=== PATIENT | female | born 1970 | race Caucasian/White ===

== ENCOUNTER 2017-06-07 15:06 | Observation (INO) | payer BC ==
[~2017-06-07] VITALS: Ht 162.6 cm; Wt 81.8 kg
[2017-06-07] MEDS ORDERED: ULTRAM50 MG PO (15:22)
[2017-06-07] MEDS ORDERED: TYLENOL WITH C1 EACH PO (15:22)
[2017-06-07] MEDS ORDERED: ZESTRIL10 MG PO (15:23)
--- OUTSIDE RECORDS SUMMARY | 2017-06-07 15:34 | XMS ---
Demographics + + + | Address | [address] | | | [place] [address] | + + + | Preferred Language | Unknown | + + + | Marital Status | Unknown | + + + | Anabaptism Affiliation | Unknown | + + + | Race | Unknown | + + + | Ethnic Group | Unknown | + + + Author + + + | Author | [facility] | + + + | Organization | [facility] | + + + | Address | [address] | | | [place] [address] | + + + | Phone | | + + + Care Team Providers + + + + | Care Compactor Driver Name | Role | Phone | + + + + Unavailable | Unavailable | + + + + PROBLEMS + + + + + + + + | Type | Condition | ICD9-CM | [id number] | Onset | Condition | SNOMED | | | | Code | Code | Dates | Status | Code | + + + + + + + + | Assessment | Chondromal | M22.41 | | 18 March, | Active | [id number] | | | acia | | | 2017 | | | | | patellae | | | | | | | | of right | | | | | | | | knee | | | | | | + + + + + + + + | Problem | Right foot | | S99.921A | | Active | | | | injury | | | | | | + + + + + + + + | Assessment | Chondromal | M22.42 | | 18 March, | Active | [id number] | | | acia | | | 2016 | | | | | patellae | | | | | | | | of left | | | | | | | | knee | | | | | | + + + + + + + + | Problem | Hot | N95.1 | | | Active | [id number] | | | flashes | | | | | | | | due to | | | | | | | | menopause | | | | | | + + + + + + + + | Problem | Tobacco | | Z72.0 | | Active | [id number] | | | use | | | | | | + + + + + + + + | Problem | Left knee | | M25.562 | | Active | [id number] | | | pain | | | | | | + + + + + + + + | Problem | HTN | | I10 | | Active | 00052412 | | | (hypertens | | | | | | | | ion) | | | | | | + + + + + + + + | Problem | Encounter | | Z23 | | Active | [id number] | | | for | | | | | | | | immunizati | | | | | | | | on | | | | | | + + + + + + + + | Problem | Screening | Z12.4 | | | Active | [id number] | | | for | | | | | | | | cervical | | | | | | | | cancer | | | | | | + + + + + + + + ALLERGIES + + + + +---------+ | Substance | Reaction | Event Type | Date | Status | + + + + +---------+ | N.K.D.A. | Unknown | Non Drug | March, | Unknown | | | | Allergy | | | + + + + +---------+ SOCIAL HISTORY No smoking Hx information available PLAN OF CARE VITAL SIGNS + + + + | Height | 64.5 in | 2017-03-22 | + + + + | Weight | 186 lbs | 2017-03-22 | + + + + | BMI | 31.43 kg/m2 | 2017-03-22 | + + + + | Temperature | 98.1 degrees Fahrenheit | 2017-03-22 | + + + + | Heart Rate | 81 /min | 2017-03-22 | + + + + | Blood pressure systolic | 120 mm Hg | 2017-03-22 | + + + + | Blood pressure diastolic | 82 mm Hg | 2017-03-22 | + + + + MEDICATIONS + + + + + + + +--------+ | Medicati | Instruct | Dosage | Frequenc | Start | End Date | Duration | Status | | on | ions | | y | Date | | | | + + + + + + + +--------+ | Lisinopr | Orally | 1 tablet | 24h | 11 Feb, | | 30 | Active | | il 10 MG | Once a | | | 2016 | | day() | | | | day | | | | | | | + + + + + + + +--------+ | Estrace | Orally | 1 tablet | 24h | 16 March, | | 30 | Active | | 0.5 MG | Once a | | | 2017 | | day(s) | | | | day | | | | | | | + + + + + + + +--------+ | Nicoderm | Transder | 1 patch | 24h | | | | Active | | CQ 14 | mal Once | to skin | | | | | | | MG/24HR | a day | | | | | | | + + + + + + + +--------+ | Diclofen | Orally | 1 tablet | 12h | 18 March, | 16 Aug, | 30 | Active | | ac | Two | with | | 2016 | 2016 | day(s) | | | Sodium | times a | food or | | | | | | | 50 MG | day | milk | | | | | | + + + + + + + +--------+ RESULTS No Results PROCEDURES + + + + + | Procedure | Date Ordered | Related Diagnosis | Body Site | + + + + + | Est Level IV | March 22, 2017 | | | | Extended | | | | + + + + + | [facility] MED/CURRENT | March 22, 2017 | | | | MED MERGE | | | | + + + + + IMMUNIZATIONS No Known Immunizations"
--- NOTE | 2017-06-07 18:30 | NUR ---
RECEIVED REPORT VIA TELEPHONE FROM ED RN.
--- NOTE | 2017-06-07 19:06 | NUR ---
RECEIVED REPORT FROM DAY SHIFT RN. PATIENT RATES PAIN AT A 4/10. PATIENT JUST RECEIVED PRN PAIN MEDICATION. PATIENT DENIES ANY NEEDS. CALL LIGHT IS WITHIN REACH.
--- NOTE | 2017-06-07 19:57 | NUR ---
PATIENT INTAKE ASSESMENT COMPLETED AND RECORDED. PATIENT RATES PAIN AT 6/10. PATIENT STATED "THE PAIN IS MUCH IMPROVED" PATIENT IS A SBA AND IS STEADY ON HER FEET. PATIENT ASSISTED TO THE BATHROOM AND HAD A VERY LARGE LOOSE BM. PATIENT DENIES ANY NAUSEA. PATIENTS EVENING MEDICATIONS GIVEN PER ORDER. PATIENT EDUCATED ON DIET. PATIENT ORIENTED TO ROOM AND FLOOR. PATIENT EDUCATED ON THE USE ON THE CALL LIGHT. PATIENT VERBALIZED UNDERSTANDING. PATIENT DENIES ANY FURTHER NEEDS AT THIS TIME. CALL LIGHT IS WITHIN REACH.
--- NOTE | 2017-06-07 22:33 | NUR ---
PATIENT EXPRESSED FRUSTRATION OF IV IN HER AC STATING "EVERY TIME I MOVE THIS MACHINE BEEPS" NEW IV ATTEMPTED BY MULTIPLE NURSES WITH NO SUCCESS. PATIENT STARTED TO CRY AND BECAME VERY ANXIOUS. PATIENT EXPRESSED FRUSTRATION WITH NEW IV UNABLE TO BE STARTED. PATIENT STATED "I JUST WANT TO FEEL BETTER, AND REST, THIS STUPID MACHINE SUCKS" PATIENT GIVEN PRN ANXIETY MEDICATION PER ORDER. PATIENT ALSO GIVEN PRN TYLENOL FOR 8/10 ABD PAIN. PATIENT GIVEN FRESH ICE WATER. PATIENT DENIES ANY FURTHER NEEDS. CALL LIGHT IN REACH.
--- NOTE | 2017-06-08 00:30 | NUR ---
PATIENTS IV PUMP WAS BEEPING. PATIENT HAD ARM BENT. PATIENTS IV FIXED AND [ATIETNS ARM PLACED ON A PILLOW TO HELP KEEP IV FROM OCCLUDING. PATIENT DENIES ANY NEEDS AT THIS TIME. CALL LIGHT IN REACH.
--- NOTE | 2017-06-08 02:25 | NUR ---
PATIENT IS RESTING IN BED ON HER RIGHT SIDE. PATIENTS BREATHING IS EVEN AND UNLABORED, RR 18. CALL LIGHT IN REACH.
--- NOTE | 2017-06-08 04:03 | NUR ---
PATIENT GIVEN PRN TORADOL FOR 7/10 LOWER ABD PAIN. PATIENT DENIES ANY NAUSEA. PATIENT ALSO GIVEN A WARM PACK FOR HER LOWER ABD. PATIENT DENIES ANY FURTHER NEEDS. CALL LIGHT IS WITHIN REACH.
--- NOTE | 2017-06-08 05:20 | NUR ---
PATIENT RESTED WELL FOR THE MAJORITY OF THE SHIFT. PATIENT IS ON CLEARS AND IS TOELRATING THEM WELL. PATIENT DENIED ANY NAUSEA. PATIENT RECEIVED X2 PRN PAIN MEDICATION FOR LOWER ABD PAIN. PATIENT RECIEVED X1 PRN ANXIETY MEDICATION FOR ANGITATION AND ANXIETY. PATIENT IS INDEPENDENT IN THE ROOM AND IS STEADY ON HER FEET. PATIENT HAD X5 LOOSE LARGE BM'S. PATIENT IS AAOX3 AND USES CALL LIGHT APPROPRIATELY.
--- NOTE | 2017-06-08 05:54 | NUR ---
PATIENTS BLOOD DRAWN FROM IV SITE. PATIENT IS VERY UPSET IN THE ROOM. PATIENT STATES "IT IS MY SONS BIRTHDAY AND I AM HERE" PATIENT RATES PAIN AT A 5/10 AND STATES "THE WARM PACK HELPS" PATIENTS URIN SMAPLE SENT TO LAB. PATIENT DENIES ANY FURTHER NEEDS. CALL LIGHT IN REACH.
--- NOTE | 2017-06-08 07:08 | NUR ---
RECIEVED BEDSIDE REPORT FROM JUAN QUINTANILLA. PT AWAKE AND ALERT IN BED WITH FAMILY AT BEDSIDE. DISCUSSED GOALS OF THE DAY, PLAN OF CARE.
--- NOTE | 2017-06-08 08:28 | NUR ---
PT IS VERY TEARFUL AND ANXIOUS. PT WAS INSTRUCTED TO HAVE A FULL BLADDER FOR AN ULTRASOUND, HOWEVER PT EMPTIED HER BLADDER. 1MG ATIVAN GIVEN FOR ANXIETY. PT STATES HER KNEE IS VERY PAINFUL, MD AWARE. MD AWARE PT REFUSED BOWEL MEDS THIS AM.
--- NOTE | 2017-06-08 09:01 | NUR ---
PT SLEEPING SOUNDLY, BREATHING EVEN AND UNLABORED.
--- NOTE | 2017-06-08 10:01 | NUR ---
ULTRASOUND COMPLETED PELVIC US.
--- NOTE | 2017-06-08 11:03 | NUR ---
PT LAYING IN BED, WRAPPED IN BLEANET. SOME TEARS WERE FLOWING AND SHE EXPRESSED ANXIETY OVER BEING HERE-TODAY IS HER SON'S 22ND BDAY. CAME IN FOR ABDO PAIN, BUT NOW HER KNEE IS MORE OF AN ISSUE TO HER. HER IS IN ROOM AND SEEMS SUPPORTIVE. SHE WANTS TO KNOW WHY SHE IS NOT RECEIVING HER PAIN MEDS FOR HER KNEE, I WILL FOLLOW UP W/RN. NARCOTIC PAIN MEDS SUSPECTED IN CONSTIPATION ISSUE. PT REQUESTED PRAYER, WILL CONTINUE TO FOLLOW
--- NOTE | 2017-06-08 11:26 | NUR ---
PT RESTING IN BED WITH EYES CLOSED, WAKES EASILY TO VOICE. IV ANTIBIOTICS RUNNING AT THIS TIME. ALL PT QUESTIONS ANSWERED RE: NEW MEDICATIONS. PT VERY TEARFUL AND ANXIOUS.
--- NOTE | 2017-06-08 12:08 | NUR ---
MED REC COMPLETE WITH [facility] REFILL HISTORY.
--- NOTE | 2017-06-08 13:04 | NUR ---
PT STILL TEARFUL AND ANXIOUS. PT REPORTS PAIN IN LEFT KNEE 6/10, WHICH IS UNCHANGED FROM THIS MORNING. PT DENIES NAUSEA.
--- NOTE | 2017-06-08 15:39 | NUR ---
ROUNDED WITH DR PIRES. PT TEARFUL AND ANXIOUS. PT AND FAMILY HAD QUESIONS RE: TREATMENT OPTIONS, ANSWERED BY MD AND RN. PT RESTING IN BED.
--- NOTE | 2017-06-08 16:13 | NUR ---
PT VERY TEARY. STATES SHE WOULD LIKE TO GO OUTSIDE, ADVISED THE POLICY THAT SHE CANNOT GO OUTSIDE WHILE SHE IS AN INPATIENT. DECLINED TO HAVE THE BLINDS RAISED IN HER ROOM TO LET IN THE SUN. JUAN OLIVAS WAS ABLE TO GET AN IV STARTED IN RIGHT FOREARM.
--- NOTE | 2017-06-08 18:55 | NUR ---
PT IS VERY EMOTIONAL, TEARY AND UPSET. NO C/O ABD PAIN, COMPLAINTS OF LEFT KNEE PAIN. NEW IV STARTED IN RIGHT FOREARM. NS @ 125. MULTIPLE LOOSE BM. VOIDING WELL. ATIVAN X3, TORADOL X2.
--- NOTE | 2017-06-08 21:30 | NUR ---
PT IN BED, TEARFULLY TALKING WITH HER . UPSET ABOUT HER DIET, BUT STATES SHE UNDERSTANDS WHY. HAS BEEN UP TO VOID PRIOR TO THIS HOUR. ACTIVE BOWEL SOUNDS, STATES SHE HASN'T HAD A BM THIS EVENING.
--- NOTE | 2017-06-08 23:00 | NUR ---
PT WITH LIGHTS OUT, RESP EVEN AND UNLABORED. REQUESTED HER PRN ATIVAN EARLIER, RECEIVED DOSE WITH HER BEDTIME MEDS.
--- NOTE | 2017-06-09 00:30 | NUR ---
PT WITH EYES CLOSED, IV CONTINUES TO INFUSE PER ORDER. HAS NOT USED CALL LIGHT IN PAST 2 HOURS.
--- NOTE | 2017-06-09 02:15 | NUR ---
PT WITH EYES CLOSED, RESP EVEN AND UNLABORED. HAS NOT USED CALL LIGHT UP TO THIS HOUR FROM 2200.
--- NOTE | 2017-06-09 05:28 | NUR ---
PT AWAKE, VISITING, SMILING. TALKED ABOUT LAST NIGHT, SHE WAS CRYING WITH HER , NOT HAPPY WITH HIM, BECAUSE THEY ARE MOVING AND HE MOVED ALL THE BOXES THAT THEY WERE NOT KEEPING, TO THEIR NEW HOUSE. STATED THAT SHE DIDN'T MEAN TO CRY BUT SHE COULDN'T HELP IT. SON'S BIRTHDAY WAS THE 4TH, AND SHE WASN'T HOME FOR HIM. STATES SHE DOESN'T FEEL SICK, NO PAIN IN THE STOMACH ANYMORE. DOESN'T KNOW WHY HER LABS: WBC'S ARE ELEVATED SAYS DOESN'T KNOW. UP TO THE BATHROOM 2X SINCE MIDNIGHT.
--- NOTE | 2017-06-09 07:21 | NUR ---
BEDSIDE HANDOFF REPORT RECEIVED FROM WATER PUMPER RN. PT RESTIN GIN BED, BEDSIDE. PT DENIES NEEDS AT THIS TIME.
--- NOTE | 2017-06-09 08:20 | NUR ---
PT RESTING IN BED. PT DENIES PAIN. PT ON ROOM AIR, LUNG SOUNDS CLEAR. PT EMOTIONAL, HIGH ANXIETY, REQUESTING ATIVAN, 1 MG IV ATIVAN GIVEN. PT DENIES NAUSEA, TOLERATING FULL LIQUID DIET. PT REPORT OF SOFT BOWEL MOVEMENTS OVER NIGHT, REFUSING SENNA AND MIRALAX. PT VOICING DESRIE TO DISCHARGE TODAY. DISCUSSED PLAN OF CARE WITH PT. PT DENIES OTHER NEEDS AT THIS TIME.
[2017-06-09] MEDS ORDERED: CEPHALEXIN500 MG PO (09:07)
[2017-06-09] MEDS ORDERED: METRONIDAZOLE500 MG PO (09:08)
[2017-06-09] MEDS ORDERED: NICOTINE1 EAC1 TD (09:10)
--- NOTE | 2017-06-09 09:52 | NUR ---
VITALS TAKEN. PT IS BEING DISCHARGED TO HOME
--- NOTE | 2017-06-11 16:28 | CONS ---
[facility] [address], [place] [address] Signed DATE OF SERVICE: 06/08/2017 REFERRING PHYSICIAN: Dr. Adri Monte. CHIEF COMPLAINT: Lower abdominal pain. HISTORY OF PRESENT ILLNESS: Adriana is a 47-year-old female who underwent left knee arthroscopy with removal of meniscus [address] Hayden Valle. Unfortunately, she has been constipated since the surgery. Her had been to the pharmacy and consulted with his pharmacist and tried initially some Dulcolax suppositories followed by magnesium citrate p.o. and eventually she passed a few hard ashleigh. Of course, she was complaining of crampy abdominal pain after all the l a xatives and finally her brought her into the emergency roomfor evaluation. In the emergency room, she was hydrated and then admitted to our Internal Medicine Service. She was given additional fluids yesterday overnight. Her white blood count was i n itially 18.3, is now 18.9. Initially the antibiotics were held. Neutrophils were 79. Her sedimentation rate is elevated at 26 and her CRP is also elevated at 32 with a lactic acid fine at 0.9, and a repeat urinalysis this morning is fine. Liver function t e sts also fine, lipase fine, albumin is good at 4.1. BUN and creatinine are also good at 7 and 0.6. Because of her ongoing issues, I was called early this morning to see her in consultation as the general surgeon configuration manager. In the meantime, she had a CT scan performed and there was diffuse submucosal edema in the rectum and distal sigmoid colon. There was also dilated fluid-filled colon and no evidence of any excess stool. Also, she has bilateral follicular ovarian cysts. She then had a pelvic ultrasound perf o rmed and again she has bilateral follicular cysts. In talking with Adriana, she has had a previous partial hysterectomy because she had cervical polyps. Four years ago, she was on quite a few medications and having trouble with nausea and vomiting, ended u p with a colonoscopy and that was unremarkable. In the meantime, she has had 6 large bowel movements and now is feeling much better with respect to the abdomen, in fact all the abdominal pain is gone. Of course she is tired and a little emotional. She oralia d her son's birthday today and she would like to go home, although her white count remains elevated. She has been on a clear liquid diet, but she has had very little appetite. PAST MEDICAL HISTORY: Hypertension, cervical polyps, and cyclic vomiting syndrome. PAST SURGICAL HISTORY: Partial hysterectomy, left knee arthroscopy with meniscectomy with Dr. Valle 2 weeks ago, and a negative colonoscopy 4 years ago. SOCIAL HISTORY: Electronically Signed By: RYAN PIRES MD 06/11/17 5427 PATIENT NAME: ADRIANA LORA CONSULTATION DATE OF : 68 PHYSICIAN: RYAN PIRES MD REPORT #: [id number] REPORT IS CONFIDENTIAL AND NOT TO BE RELEASED WITHOUT AUTHORIZATION [facility] [address] [place] [id number] Signed She does not smoke or drink. She is to [place] at [phone]. Dr. Shantanu Kessler is her primary care provider. They prefer the [facility]. FAMILY HISTORY: She is adopted, but she knows her maternal aunt and maternal grandmother both had breast cancer. She has had a mammogram herself and that was fine. REVIEW OF SYSTEMS: She had 10 systems reviewed and I included findings in the above. ALLERGIES: None. She had quite a bit of nausea after the anesthesia for couple of days, but that has resolved. MEDICATIONS: Tylenol with Codeine No. 3, tramadol, and lisinopril. PHYSICAL EXAMINATION: VITAL SIGNS: Her blood pressure is 104/65, heart rate 70, respiratory rate 16, temperature is 99. She is 99% on room air. She is 5 feet 4 inches, 81 kg. GENERAL: Adriana is a 47-year-old female, lying supine in her hospital bed. Her is at the [facility] and our nurse is with us. One can see she has been tearful and crying. She has some puffiness around her eyes. She is tired, but she is alert and awake and interactive otherwise. She is actually good historian so is her . LUNGS: Clear to auscultation bilaterally. HEART: Regular rate and rhythm. ABDOMEN: Soft, flat and nontender, particularly in the lower abdomen. RECTUM: Rectal exam was not performed. LABORATORY DATA: Her white blood cell count was initially 18.3, now 18.9, hemoglobin is 12.9 with neutrophils 79. Her BUN is 7, creatinine 0.6. Her repeat urinalysis is negative. Her lactic acid is normal at 0.7, but the sed rate is a little high at 26 and her CRP is a little up at 32. Her CA-125 is negative. Her liver function test is negative. Her albumin is 4.1, and lipase is negative. RADIOGRAPHIC STUDIES: The CT scan and pelvis is reviewed and she does have the submucosal edema of the rectum in the distal sigmoid colon. There is dilated fluid-filled colon. No evidence of any impacted stool. The re is a little perirectal and pericolonic fat stranding. I can also see the bilateral follicular ovarian cysts. An ultrasound was performed in followup and there is no free fluid in the pelvis, but again the benign physiologic bilateral follicular cysts. ASSESSMENT AND PLAN: Electronically Signed By: RYAN PIRES MD 06/11/17 1628 PATIENT NAME: ADRIANA LORA CONSULTATION DATE OF : 68 PHYSICIAN: RYAN PIRES MD REPORT #: [id number] REPORT IS CONFIDENTIAL AND NOT TO BE RELEASED WITHOUT AUTHORIZATION [facility] [address] [place], [place] [address] Signed Adriana is a 47-year-old female, who presents as above. She also told me at one point 1 of her tumor markers was elevated and then she ended up with a CT scan, and they thought that she might have carcinomatosis. She had been down to [facility], and in the end that turned out all to be unremarkable. Today, our Internal Medicine Service did draw a CA-125 level and it is fine. I think at this point, her story follows a very logical chronologic order and it looks l gumaro the findings in the rectum and distal sigmoid colon are probably from the enemas and suppositories. Also, she had a negative colonoscopy 4 years ago. I think, at this point, she wanted to wait and continue IV fluids and we are going to pump her up to a full liquid diet and we will see how she does with repeat labs in the morning. Of course, she would like to go home today because it is her son's birthday, but I think that is unwise. I think in due time she will be fine. I have discussed this with the jadiel marilynn, her , and the nurse. They have expressed understanding and agreed to above plan. MD AMARA Abreu/Mandy /[id number] cc: MD Dr. Shantanu Hall Electronically Signed By: RYAN PIRES MD 06/11/17 1628 PATIENT NAME: ADRIANA LORA CONSULTATION DATE OF : 68 PHYSICIAN: RYAN PIRES MD REPORT #: [id number] REPORT IS CONFIDENTIAL AND NOT TO BE RELEASED WITHOUT AUTHORIZATION
== END 2017-06-09 10:05 | disposition home or self-care (01) ==
LOC: ED 15:06 → MS 15:07
PROVIDERS: ADMIT Internal Medicine
DX: K52.9 Noninfective gastroenteritis and colitis, unspecified (principal); K59.03 Drug induced constipation; T40.4X5A Adverse effect of other synthetic narcotics, initial encounter; T40.2X5A Adverse effect of other opioids, initial encounter; F17.200 Nicotine dependence, unspecified, uncomplicated; I10 Essential (primary) hypertension; Z79.891 Long term (current) use of opiate analgesic; Z79.899 Other long term (current) drug therapy; Z98.890 Other specified postprocedural states
CPT/HCPCS: 36415; 51701; 74177; 76830; 76856; 80048; 80053; 81001; 83605; 83690; 83735; 84100; 85025; 85651; 86140; 86304; 96361; 96365; 96366; 96374; 96375; 96376; 99285; 99406; G0378; J0696; J1170; J1885; J2060; J2405; J7030; Q9967

== ENCOUNTER 2017-06-23 16:19 | Emergency (ER) | payer BC ==
[~2017-06-23] VITALS: Ht 162.6 cm; Wt 81.7 kg
--- OUTSIDE RECORDS SUMMARY | ~2017-06-23 | XMS ---
Demographics + + + | Address | [address] | | | [place] [address] | + + + | Preferred Language | Unknown | + + + | Marital Status | Unknown | + + + | Zoroastrianism Affiliation | Unknown | + + + | Race | Unknown | + + + | Ethnic Group | Unknown | + + + Author + + + | Author | [facility] | + + + | Organization | [facility] | + + + | Address | [address] | | | [place] [address] | + + + | Phone | | + + + Care Team Providers + + + + | Care Network Technology Instructor Name | Role | Phone | + + + + Unavailable | Unavailable | + + + + PROBLEMS +---------+ + + +--------+ + + | Type | Condition | ICD9-CM | [id number] | Onset | Condition | SNOMED | | | | Code | Code | Dates | Status | Code | +---------+ + + +--------+ + + | Problem | Right foot | | S99.921A | | Active | | | | injury | | | | | | +---------+ + + +--------+ + + | Problem | Hot | N95.1 | | | Active | [id number] | | | flashes | | | | | | | | due to | | | | | | | | menopause | | | | | | +---------+ + + +--------+ + + | Problem | Tobacco | | Z72.0 | | Active | [id number] | | | use | | | | | | +---------+ + + +--------+ + + | Problem | Left knee | | M25.562 | | Active | [id number] | | | pain | | | | | | +---------+ + + +--------+ + + | Problem | HTN | | I10 | | Active | 87330163 | | | (hypertens | | | | | | | | ion) | | | | | | +---------+ + + +--------+ + + | Problem | Encounter | | Z23 | | Active | [id number] | | | for | | | | | | | | immunizati | | | | | | | | on | | | | | | +---------+ + + +--------+ + + | Problem | Screening | Z12.4 | | | Active | [id number] | | | for | | | | | | | | cervical | | | | | | | | cancer | | | | | | +---------+ + + +--------+ + + ALLERGIES Unknown Allergies SOCIAL HISTORY No smoking Hx information available PLAN OF CARE VITAL SIGNS MEDICATIONS Unknown Medications RESULTS No Results PROCEDURES No Known procedures IMMUNIZATIONS No Known Immunizations"
[~2017-06-23 16:19] MED LIST: CEPHALEXIN500 MG PO; METRONIDAZOLE500 MG PO; NICOTINE1 EAC1 TD; TYLENOL WITH C1 EACH PO; ULTRAM50 MG PO; ZESTRIL10 MG PO
[2017-06-23] MEDS ORDERED: ZOFRAN ODT4 MG PO (22:03)
== END 2017-06-23 22:08 | disposition home or self-care (01) ==
LOC: ED 16:19
DX: R10.10 Upper abdominal pain, unspecified (principal); F17.200 Nicotine dependence, unspecified, uncomplicated; Z90.10 Acquired absence of unspecified breast and nipple; Z79.899 Other long term (current) drug therapy
CPT/HCPCS: 80053; 81001; 83690; 85025; 96361; 96372; 96374; 96375; 96376; 99283; J1170; J1885; J2270; J2405; J2550; J7030

== ENCOUNTER 2017-06-26 11:49 | Emergency (ER) | payer BC ==
[~2017-06-26] VITALS: Ht 162.6 cm; Wt 81.7 kg
[~2017-06-26 11:49] MED LIST changes: +ZOFRAN ODT4 MG PO
[2017-06-26] MEDS ORDERED: ONDANSETRON ODT8 MG PO (14:33)
[2017-06-26] MEDS ORDERED: BACTRIM DS TAB1 EACH PO (14:33)
[2017-06-26] MEDS ORDERED: BENTYL10 MG PO (14:33)
== END 2017-06-26 14:43 | disposition home or self-care (01) ==
LOC: ED 11:49
DX: K52.9 Noninfective gastroenteritis and colitis, unspecified (principal); F17.200 Nicotine dependence, unspecified, uncomplicated; Z79.899 Other long term (current) drug therapy
CPT/HCPCS: 74177; 80053; 81001; 82150; 83690; 85025; 96361; 96374; 96375; 96376; 99284; J1170; J2405; J2550; J7030; Q9967

== ENCOUNTER 2017-06-28 08:11 | Emergency (ER) | payer BC ==
[~2017-06-28] VITALS: Ht 162.6 cm; Wt 81.7 kg
[~2017-06-28 08:11] MED LIST changes: +BACTRIM DS TAB1 EACH PO; +BENTYL10 MG PO; +ONDANSETRON ODT8 MG PO
[2017-06-28] MEDS ORDERED: NORCO 5-325 TA1 EACH PO (09:35)
== END 2017-06-28 09:49 | disposition home or self-care (01) ==
LOC: ED 08:11
DX: R10.84 Generalized abdominal pain (principal); F17.200 Nicotine dependence, unspecified, uncomplicated; Z90.710 Acquired absence of both cervix and uterus; Z79.899 Other long term (current) drug therapy
CPT/HCPCS: 80053; 81001; 82150; 83690; 85025; 96374; 96375; 99283; J1885; J2060; J2550; J7030

== ENCOUNTER 2017-09-22 16:43 | Emergency (ER) | payer BC ==
[~2017-09-22] VITALS: Ht 162.6 cm; Wt 81.7 kg
--- OUTSIDE RECORDS SUMMARY | ~2017-09-22 | XMS ---
Demographics + + + | Address | [address] | | | [place] [address] | + + + | Preferred Language | Unknown | + + + | Marital Status | Unknown | + + + | Jewish Affiliation | Unknown | + + + | Race | Unknown | + + + | Ethnic Group | Unknown | + + + Author + + + | Author | [facility] | + + + | Organization | [facility] | + + + | Address | 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 | | | | | | | | block | | | | | | +---------+ + + +--------+ + + | Problem | Right foot | | S99.921A | | Active | | | | injury | | | | | | +---------+ + + +--------+ + + | Problem | Colitis | K52.9 | | | Active | 57500044 | +---------+ + + +--------+ + + | Problem | Left axis | R94.31 | | | Active | 88376614 | | | deviation | | | | | | +---------+ + + +--------+ + + | Problem | Hot | N95.1 | | | Active | 01346776 | | | flashes | | | | | | | | due to | | | | | | | | menopause | | | | | | +---------+ + + +--------+ + + | Problem | Tobacco | | Z72.0 | | Active | 485565378 | | | use | | | | | | +---------+ + + +--------+ + + | Problem | Left knee | | M25.562 | | Active | 257472318 | | | pain | | | | | | +---------+ + + +--------+ + + | Problem | HTN | | I10 | | Active | 26115969 | | | (hypertens | | | | | | | | ion) | | | | | | +---------+ + + +--------+ + + | Problem | Encounter | | Z23 | | Active | 958343449 | | | for | | | | | | | | immunizati | | | | | | | | on | | | | | | +---------+ + + +--------+ + + | Problem | Screening | Z12.4 | | | Active | [id number] | | | for | | | | | | | | cervical | | | | | | | | cancer | | | | | | +---------+ + + +--------+ + + ALLERGIES Unknown Allergies SOCIAL HISTORY No smoking Hx information available PLAN OF CARE VITAL SIGNS MEDICATIONS + + + + + + + +--------+ | Medicati | Instruct | Dosage | Frequenc | Start | End Date | Duration | Status | | on | ions | | y | Date | | | | + + + + + + + +--------+ | Lisinopr | Orally | 1 tablet | 24h | 11 Apr, | | | Active | | il 10 MG | Once a | | | 2017 | | | | | | day | | | | | | | + + + + + + + +--------+ RESULTS No Results PROCEDURES No Known procedures IMMUNIZATIONS No Known Immunizations"
--- OUTSIDE RECORDS SUMMARY | ~2017-09-22 | XMS ---
Demographics + + + | Address | [address] | | | [place] [address] | + + + | Preferred Language | Unknown | + + + | Marital Status | Unknown | + + + | Islam Affiliation | Unknown | + + + | Race | Unknown | + + + | Ethnic Group | Unknown | + + + Author + + + | Author | [facility] | + + + | Organization | [facility] | + + + | Address | [address] | | | [place] [address] | + + + | Phone | | + + + Care Team Providers + + + + | Care [facility] Dean Name | Role | Phone | + + + + Unavailable | Unavailable | + + + + PROBLEMS +---------+ + + +--------+ + + | Type | Condition | ICD9-CM | [id number] | Onset | Condition | SNOMED | | | | Code | Code | Dates | Status | Code | +---------+ + + +--------+ + + | Problem | Left | I44.7 | | | Active | [id number] | | | bundle | | | [...] | K52.9 | | | Active | 08129923 | +---------+ + + +--------+ + + | Problem | Left axis | R94.31 | | | Active | 55252599 | | | deviation | | | | | | +---------+ + + +--------+ + + | Problem | Hot | N95.1 | | | Active | 89452878 | | | flashes | | | | | | | | due to | | | | | | | | menopause | | | | | | +---------+ + + +--------+ + + | Problem | Tobacco | | Z72.0 | | Active | 888316759 | | | use | | | | | | +---------+ + + +--------+ + + | Problem | Left knee | | M25.562 | | Active | 310981437 | | | pain | | | | | | +---------+ + + +--------+ + + | Problem | HTN | | I10 | | Active | 41638204 | | | (hypertens | | | | | | | | ion) | | | | | | +---------+ + + +--------+ + + | Problem | Encounter | | Z23 | | Active | 074805615 | | | for | | | | | | | | immunizati | | | | | | | | on | | | | | | +---------+ + + +--------+ + + | Problem | Screening | Z12.4 | | | Active | 012823906 | | | for | | | [...]
[~2017-09-22 16:43] MED LIST changes: +NORCO 5-325 TA1 EACH PO
[2017-09-22] MEDS ORDERED: ESTRACE0.5 MG PO (16:59)
[2017-09-22] MEDS ORDERED: PROMETHAZINE HC25 M1 PO (19:13)
[2017-09-22] MEDS ORDERED: ONDANSETRON ODT8 MG PO (19:13)
== END 2017-09-22 19:29 | disposition home or self-care (01) ==
LOC: ED 16:43
DX: R11.2 Nausea with vomiting, unspecified (principal); R10.9 Unspecified abdominal pain; F17.200 Nicotine dependence, unspecified, uncomplicated; Z90.710 Acquired absence of both cervix and uterus; Z79.899 Other long term (current) drug therapy
CPT/HCPCS: 80053; 83690; 85025; 96374; 96375; 96376; 99283; J1170; J2405; J2550

== ENCOUNTER 2021-03-18 14:15 | Emergency (ER) | payer BC ==
[~2021-03-18] VITALS: Ht 162.6 cm; Wt 72.6 kg
[~2021-03-18 14:15] MED LIST changes: +ESTRACE0.5 MG PO; +PROMETHAZINE HC25 M1 PO
[2021-03-18] MEDS ORDERED: K-TAB ER20 MEQ PO (17:55)
[2021-03-18] MEDS ORDERED: ZOFRAN4 MG PO (17:55)
== END 2021-03-18 18:47 | disposition home or self-care (01) ==
LOC: ED 14:15
DX: R11.15 Cyclical vomiting syndrome unrelated to migraine (principal); R10.9 Unspecified abdominal pain; E87.6 Hypokalemia; F17.200 Nicotine dependence, unspecified, uncomplicated
CPT/HCPCS: 74177; 80053; 81001; 83690; 85025; 96375; 99284-25; J1170; J2270; J2550; J3480; J7030; J7060; Q9967

== ENCOUNTER 2021-05-02 18:47 | Emergency (ER) | payer BC ==
[~2021-05-02] VITALS: Ht 162.6 cm; Wt 72.7 kg
[~2021-05-02 18:47] MED LIST changes: +K-TAB ER20 MEQ PO; +ZOFRAN4 MG PO
[2021-05-02] MEDS ORDERED: ZOFRAN4 MG PO (21:04)
== END 2021-05-02 21:21 | disposition home or self-care (01) ==
LOC: ED 18:47
DX: R11.15 Cyclical vomiting syndrome unrelated to migraine (principal); F17.200 Nicotine dependence, unspecified, uncomplicated
CPT/HCPCS: 80053; 81001; 83690; 85025; 96374; 96375; 96376; 99284-25; J1170; J2405; J7030

== ENCOUNTER 2021-07-12 14:59 | Emergency (ER) | payer BC ==
[~2021-07-12] VITALS: Ht 162.6 cm; Wt 72.7 kg
== END 2021-07-12 20:22 | disposition home or self-care (01) ==
LOC: ED 14:59
DX: R11.15 Cyclical vomiting syndrome unrelated to migraine (principal); F17.200 Nicotine dependence, unspecified, uncomplicated
CPT/HCPCS: 80053; 81001; 83690; 85007; 85025; 96374; 96375; 96376; 99284-25; J1170; J1200; J2405; J2550; J2765; J7030

== ENCOUNTER 2024-04-15 07:47 | Day surgery (SDC) | payer OTHER ==
[~2024-04-15] VITALS: Ht 162.6 cm; Wt 81.7 kg
[~2024-04-15 07:47] MED LIST changes: +ESTRACE1 MG PO; +HYDROXYZINE HCL50 MG PO; +IBLOOD GLUCOSE TEST STRIP 1 EA TEST VI PRN; +LACTATED RINGER'S 1,000 ML IV SCH; +LIDOCAINE HCL 1% 5 ML SDV INJ ONE; +MIDAZOLAM HCL 5 MG/5 ML VIAL IV PRN; +VENLAFAXINE HCL75 MG PO; +fentaNYL citrate 100 MCG/2 ML VIAL IV PRN
[2024-04-15 08:15] VITALS: BP 138/84
[2024-04-15] MEDS ORDERED: fentaNYL citrate 100 MCG/2 ML VIAL ONE ×2 (08:47→09:20)
[2024-04-15] MEDS ORDERED: MIDAZOLAM HCL 5 MG/5 ML VIAL ONE ×2 (08:47→09:20)
[2024-04-15] MEDS ORDERED: ondansetron HCL 4 MG/2 ML VIAL IV ONE (09:15)
--- NOTE | 2024-04-15 09:41 | NUR ---
04/15/24 0941 Sondra Sanabria 0958-PATIENT ARRIVED TO PACU ON 2L NC RR EVEN. PATIENT AWAKE TRYING TO SIT UP IN BED ORIENTED TO PACU AND ENCOURAGED TO LAY BACK DOWN. ABDOMEN SOFT IVF INFUSING. PATIENT EASILY DOZES BACK TO SLEEP.
--- NOTE | 2024-04-15 10:32 | OR ---
[facility] [address], [place] [address] Signed DATE OF OPERATION: 04/15/2024 SURGEON: Ryan Pires MD PREOPERATIVE DIAGNOSES: Screening. POSTOPERATIVE DIAGNOSES: 1. A 3 mm polyp at 4 cm in rectum. 2. Long redundant colon. 3. Tortuous sigmoid colon. 4. Minimal internal hemorrhoids. PROCEDURE: Colonoscopy with hot biopsy. ESTIMATED BLOOD LOSS: None. INDICATIONS: Adriana is a 54-year-old female asked to see me for a screening colonoscopy. She is adopted. To her knowledge, she has no colon cancer or polyps in the family. She does suffer cyclic vomiting syndrome for quite some time. We did give her some Zofran preoperatively in that regard. She went through extensive testing all down in [place]. She cannot recall the colonoscopy in 2013 at the age of 43 while in [place]. She talked about some constipation in 2017 after the knee arthroscopy that ended up with some inflammation in the rectum, but in the end she did fine. She said her CBD pen works the best for her cyclic vomiting syndrome. She says she only uses it once or twice a month if not all. She has no lower GI complaints currently. In the office, I gave her a pamphlet on colonoscopy. We had reviewed the nature of the test. There is risk including, but not limited to gas bloating, crampy abdominal pain, bleeding, perforation requiring surgery, and missed diagnosis. We also reviewed the written instructions for the bowel prep line by line. We also reviewed the need for IV sedation. She felt that Versed and fentanyl would be enough. She understands an adult person asked to take her home afterwards. She had expressed understanding and wished to proceed. DESCRIPTION OF PROCEDURE: Adriana was taken into our endoscopy suite and placed in the left lateral decubitus position. She was given 8 mg of Zofran IV. In total, she needed 12 mg of Versed and 150 mcg of fentanyl to cover the case. Even then she was frequently awake and raising Electronically Signed By: RYAN PIRES MD 04/15/24 1032 PATIENT NAME: ADRIANA LORA OPERATIVE REPORT DATE OF : 68 REPORT #: [id number] PHYSICIAN: RYAN PIRES MD PCP: JOSÉ MIGUEL GRULLON DNP REPORT IS CONFIDENTIAL AND NOT TO BE RELEASED WITHOUT AUTHORIZATION [facility] [address], [place] [address] Signed her head off the table and pushing with her abdomen. Right after the procedure was done, she was awake and talking. I think clearly in the future she would be better served both emotionally and from a technical standpoint with monitored anesthesia care with propofol infusion. A digital rectal exam had been performed, this was unremarkable. No external hemorrhoids. Good sphincter tone. There were no masses. The adult colonoscope was introduced and advanced under direct visualization of camera. It took a while to get through the sigmoid colon because of it being tortuous. It took also up to get through the long redundant left colon and finally to the hepatic flexure. It took quite a bit of medicine just to get there and finally with some additional medicine we got through the hepatic flexure and down into the cecum itself. Fortunately, her prep was good. We could easily see the appendiceal orifice and the ileocecal valve. The scope was then slowly withdrawn. We took pictures throughout for photodocumentation. There were no diverticula. Again, she has a long redundant colon and a tortuous sigmoid colon. Once in the rectum, the scope was then retroflexed and she has just minimal internal hemorrhoid tissue. After this, the gas was suctioned out and colonoscope removed. Adriana tolerated the procedure fairly well. RECOMMENDATIONS: I will see Adriana back in my office in 7 to 14 days to review her results. In the future, she would be much better served with monitored anesthesia care with propofol infusion. Ryan Pires MD ALB/MODL /[id number] cc: MD Dr. Reny Segovia Patient Chart Electronically Signed By: RYAN PIRES MD 04/15/24 1032 PATIENT NAME: ADRIANA LORA OPERATIVE REPORT DATE OF : 68 REPORT #: [id number] PHYSICIAN: RYAN PIRES MD PCP: JOSÉ MIGUEL GRULLON [facility] REPORT IS CONFIDENTIAL AND NOT TO BE RELEASED WITHOUT AUTHORIZATION [address] [place] [address] Signed Copies: RYAN PIRES MD ~ Electronically Signed By: RYAN PIRES MD 04/15/24 1032 PATIENT NAME: ADRIANA LORA OPERATIVE REPORT DATE OF : 68 REPORT #: [id number] PHYSICIAN: RYAN PIRES MD PCP: JOSÉ MIGUEL GRULLON DNP REPORT IS CONFIDENTIAL AND NOT TO BE RELEASED WITHOUT AUTHORIZATION
[2024-04-15 11:28] VITALS: BP 158/96
--- NOTE | 2024-04-15 11:32 | NUR ---
PT BACK TO ROOM FROM PACU ON RA. RECEIVED REPORT FROM HERB MARTINEZ. PT IS AWAKE. RESP EVEN AND UNLABORED. PT IS DRINKING WATER. NO OTHER NEEDS AT THIS TIME. CALL LIGHT WITHIN REACH.
--- NOTE | 2024-04-15 12:31 | NUR ---
1210-WENT OVER DISCHARGE INSTRUCTIONS WITH PT. ALL QUESTIONS ANSWERED. PT AMBULATES TO WHEELCHAIR AND RIDE PROVIDED TO FRONT OF HOSPITAL WHERE IS WAITING WITH THE CAR.
== END 2024-04-15 12:16 | disposition home or self-care (01) ==
LOC: DS 07:47 → DSVR 12:10 → DS 12:16
PROVIDERS: ATTEND Colon & Rectal Surgery
PROC: 0DBP8ZX Excision of Rectum, Via Natural or Artificial Opening Endoscopic, Diagnostic (ICD-10-PCS; principal; 2024-04-15 09:00)
DX: Z12.11 Encounter for screening for malignant neoplasm of colon (principal); K63.89 Other specified diseases of intestine; K62.1 Rectal polyp; K64.8 Other hemorrhoids; J45.909 Unspecified asthma, uncomplicated; I10 Essential (primary) hypertension; G43.A0 Cyclical vomiting, in migraine, not intractable; Z72.0 Tobacco use
CPT/HCPCS: 99153; G0500; J2250; J2405; J3010